=== PATIENT | male | born 1975 | race Caucasian/White ===

== ENCOUNTER 2020-12-18 15:08 | Emergency (ER) | payer MEDICAID, OTHER, SELFPAY ==
[~2020-12-18] VITALS: Ht 193 cm; Wt 117.4 kg
[2020-12-18] MEDS ORDERED: FLUORESCEIN OPHTHALMIC 1 MG STRIP ONE (16:06)
--- NOTE | 2020-12-18 16:15 | NUR ---
EYE PROVIDER STILL BEDSIDE
--- NOTE | 2020-12-18 16:29 | NUR ---
PT C/O RIGHT EYE PAIN AND VISION LOSS. THE VISION LOSS STARTED THIS AM. PT GOT A METAL PIECE IN HIS EYE 2 DAYS AGO AND HAS HAD PAIN SINCE. PT DENIES ANY OTHER PHYSICAL COMPLAINT.
[2020-12-18] MEDS ORDERED: PROPARACAINE OPHTH 0.5%, 15ML EACHEYE ONE (16:30)
[2020-12-18] MEDS ORDERED: FLUORESCEIN OPHTHALMIC 1 MG STRIP EACHEYE ONE (16:30)
--- NOTE | 2020-12-18 16:45 | NUR ---
ARELIS EYE LENS IN PLACE AND 500 ML EYE FLUSH IN PROGRESS.
[2020-12-18 16:55] VITALS: BP 131/88
--- NOTE | 2020-12-18 16:58 | NUR ---
EYE FLUSH COMPLETE.
== END 2020-12-18 17:07 | disposition home or self-care (01) ==
LOC: ED 16:30
DX: T15.01XA Foreign body in cornea, right eye, initial encounter (principal); H10.31 Unspecified acute conjunctivitis, right eye; H40.051 Ocular hypertension, right eye; F17.200 Nicotine dependence, unspecified, uncomplicated; W26.8XXA Contact with other sharp object(s), not elsewhere classified, initial encounter; Y93.89 Activity, other specified; Y92.89 Other specified places as the place of occurrence of the external cause; Y99.0 Civilian activity done for income or pay
CPT/HCPCS: 99283